=== PATIENT | male | born 1940 | race Caucasian/White ===

== ENCOUNTER 2020-03-12 14:48 | Outpatient (CLI) | payer MEDICARE, OTHER ==
[2020-03-12 20:17] LABS: BASOPHILS % (AUTO) 0.3 %; EOSINOPHILS # (AUTO) 0.1 10^3/uL (0.0-0.7); EOSINOPHILS % (AUTO) 2.4 %; LYMPHOCYTES # (AUTO) 1.3 10^3/uL (1.5-3.5); LYMPHOCYTES % (AUTO) 21.4 %; MEAN CORPUSCULAR HEMOGLOBIN 30.6 pg (27.0-31.0); MEAN CORPUSCULAR HGB CONC 32.5 g/dL (32.0-36.0); MEAN CORPUSCULAR VOLUME 94.1 fL (80.0-94.0); MEAN PLATELET VOLUME 11.4 fL (7.4-11.4); MONOCYTES # (AUTO) 0.7 10^3/uL (0.0-1.0); MONOCYTES % (AUTO) 12.4 %; NEUTROPHILS # (AUTO) 3.7 10^3/uL (1.5-6.6); NEUTROPHILS % (AUTO) 63.2 %; PLT - PLATELET COUNT 210 10^3/uL (130-450); RED BLOOD COUNT 4.58 10^6/uL (4.70-6.10); RED CELL DISTRIBUTION WIDTH 13.3 % (12.0-15.0); WHITE BLOOD COUNT 5.9 x10^3/uL (4.8-10.8)
[2020-03-12 20:32] LABS: ALBUMIN 4.3 g/dL (3.2-5.5); BILIRUBIN,DIRECT 0.1 mg/dL (0.1-0.5); BILIRUBIN,TOTAL 0.9 mg/dL (0.2-1.0); CREATININE 0.9 mg/dL (0.6-1.2); TOTAL PROTEIN 6.9 g/dL (6.7-8.2)
== END 2020-03-12 14:49 | disposition home or self-care (01) ==
LOC: LAB.S 14:48
PROVIDERS: ATTEND Podiatrist
DX: B35.1 Tinea unguium (principal)
CPT/HCPCS: 36415; 80076; 82565; 84520; 85025

== ENCOUNTER 2023-03-14 08:16 | Outpatient (CLI) | payer MEDICARE, OTHER | END 2023-03-14 23:59 | disposition EMS.NT | LOC: EMS 08:16 | DX: R53.1 Weakness (principal) ==

== ENCOUNTER 2023-03-16 15:06 | Outpatient (CLI) | payer MEDICARE, OTHER | END 2023-03-16 15:07 | disposition critical access hospital (66) | LOC: EMS 15:06 | DX: K92.1 Melena (principal); R19.7 Diarrhea, unspecified; R10.817 Generalized abdominal tenderness | CPT/HCPCS: A0425; A0429 ==

== ENCOUNTER 2023-03-28 15:17 | Outpatient (CLI) | payer MEDICARE, OTHER | END 2023-03-28 15:18 | disposition short-term general hospital (02) | LOC: EMS 15:17 | DX: S01.112A Laceration without foreign body of left eyelid and periocular area, initial encounter (principal); S51.012A Laceration without foreign body of left elbow, initial encounter; M25.522 Pain in left elbow; W01.190A Fall on same level from slipping, tripping and stumbling with subsequent striking against furniture, initial encounter; Y92.010 Kitchen of single-family (private) house as the place of occurrence of the external cause | CPT/HCPCS: A0425; A0429 ==

== ENCOUNTER 2023-04-28 09:03 | Outpatient (CLI) | payer MEDICARE, OTHER ==
--- NOTE | 2023-04-28 16:04 | CT Report ---
PROCEDURE: CT brain without contrast INDICATIONS: 81-year-old male with known subdural hematoma TECHNIQUE: Helical axial CT of the brain was obtained without contrast and reformatted in multiple p lanes. Radiation dose reduction was achieved using automated exposure control or adjustment of mA and /or kV according to patient size. COMPARISON: None available for comparison FINDINGS: CSF spaces: Ventricles are appropriate in size and position. No hydrocephalus. Basal cisterns unre markable. Brain: Left-sided subacute subdural hematoma measures 1.5 cm in thickness and contains both chronic and probably subacute components. 5 mm midline shift present. No evidence of parenchymal hemorrhage. Underlying atrophy and multifocal white matter chronic ischemic change. Bilateral intraocular lens re placements noted. Skull and face: Calvarium and skull base are unremarkable without suspicious lesion. Sinuses: Visualized sinuses and mastoids are clear. IMPRESSION: Known subacute to chronic subdural hematoma with mild midline shift. Comparison with any prior films would be helpful. Reviewed by: Miguelangel Michel MD on 04/28/2023 3:02 PM [place] Approved by: Miguelangel Michel MD on 04/28/2023 3:02 PM AK Station ID: [id number]
== END 2023-04-28 09:04 | disposition home or self-care (01) ==
LOC: DI 09:03
PROVIDERS: ATTEND Nurse Practitioner Family
DX: S06.5XAA Traumatic subdural hemorrhage with loss of consciousness status unknown, initial encounter (principal)

== ENCOUNTER 2023-05-01 12:43 | Outpatient (CLI) | payer MEDICARE, OTHER | END 2023-05-01 23:59 | disposition critical access hospital (66) | LOC: EMS 12:43 | DX: R03.1 Nonspecific low blood-pressure reading (principal); R29.6 Repeated falls | CPT/HCPCS: A0425; A0429 ==

== ENCOUNTER 2023-05-01 12:52 | Emergency (ER) | payer MEDICARE, OTHER ==
[2023-05-01] MEDS ORDERED: SODIUM CHLORIDE 0.9% 1,000 ML IV STA ×2 (12:59)
--- NOTE | 2023-05-01 13:08 | ED Physician Documentation ---
History of Present Illness - Stated complaint Stated Complaint: FALL - Chief complaint Chief Complaint: Trauma Hd/Nk - History obtained from History obtained from: Patient, EMS - History of Present Illness Timing: Today Pain level max: 0 Pain level now: 0 - Additonal information Additional information: Patient is an 82-year-old male with Parkinson's disease who was brought over for a fall from [facility] in [place]. It was unwitnessed he was in the bathroom. He is there reportedly for a traumatic subdural hemorrhage from mid March at [facility] in [place]. He is DNR with limited interventions. Patient is reportedly not on any anticoagulants but no medication list was sent with the patient. I would suspect that he is not on anticoagulants from his recent subdural hemorrhage. Patient has no complaints today. He reportedly had a small skin tear to the left elbow that was bandaged at the facility. Patient does not have any pain in his shoulders, neck, back, hips, knees or ankles. He was found to be mildly hypotensive with EMS. The patient states that his blood pressure goes up and down. He was started on normal saline with EMS and brought here for evaluation. Patient is DNR, limited interventions. Review of Systems Constitutional: denies: Fever, Chills GI: denies: Vomiting, Diarrhea Skin: denies: Rash Musculoskeletal: denies: Neck pain, Extremity pain Neurologic: denies: Headache PD PAST MEDICAL HISTORY - Past Medical History Cardiovascular: Hypertension, High cholesterol Respiratory: None Neuro: Parkinson's Endocrine/Autoimmune: None GI: GERD : Benign prostate hypertrophy HEENT: None Psych: None Musculoskeletal: Osteoarthritis Derm: None - Present Medications Home Medications: Ambulatory Orders Medication Instructions Recorded Confirmed Carbidopa/Levodopa ER 50/200 2 tab PO BID 03/16/23 03/16/23 [Sinemet Cr 50 mg/200 mg] Gabapentin [Neurontin] 300 mg PO TID 03/16/23 03/16/23 Losartan [Cozaar] 50 mg PO HS 03/16/23 03/16/23 Sertraline [Zoloft] 50 mg PO HS 03/16/23 03/16/23 hydroCHLOROthiazide [Hydrodiuril] 25 mg PO DAILY 03/16/23 03/16/23 - Allergies Allergies/Adverse Reactions: Allergies Allergy/AdvReac Type Severity Reaction Status Date / Time No Known Drug Allergies Allergy Verified 03/16/23 15:56 - Social History Does the pt smoke?: No Smoking Status: Never smoker Does the pt drink ETOH?: No Does the pt have substance abuse?: No - Immunizations Immunizations are current?: Yes - POLST Patient has POLST: No PD ED PE NORMAL - Vitals Vital signs reviewed: Yes - General General: Alert and oriented X 3, No acute distress, Well developed/nourished - HEENT HEENT: PERRL, EOMI, Moist mucous membranes, Pharynx benign, Other (Appears to be a healing hematoma to the left side of the head/forehead. There is a small abrasion present. No active bleeding.) - Neck Neck: Supple, no meningeal sign, No bony TTP - Cardiac Cardiac: RRR, Strong equal pulses - Respiratory Respiratory: No respiratory distress, Clear bilaterally - Abdomen Abdomen: Soft, Non tender, Non distended - Back Back: No CVA TTP, No spinal TTP - Derm Derm: Warm and dry - Extremities Extremities: No edema, No calf tenderness / cord, Other (Small abrasion/skin tear to the left elbow. No active bleeding.) - Neuro Neuro: Alert and oriented X 3, medical assistant per diem 2-12 intact, No motor deficit, No sensory deficit, Normal speech Eye Opening: Spontaneous Motor: Obeys Commands Verbal: Oriented GCS Score: 15 - Psych Psych: Normal mood, Normal affect Results - Vitals Vitals: Vital Signs - 24 hr 05/01/23 05/01/23 05/01/23 12:58 14:52 16:37 Temperature 36.4 C L 36.7 C Heart Rate 83 76 75 Respiratory 18 16 17 Rate Blood Pressure 94/51 L 110/67 164/87 H O2 Saturation 98 93 100 Oxygen O2 Source Room air - Labs Labs: Laboratory Tests 05/01/23 05/01/23 13:08 13:08 WBC 6.1 RBC 4.02 L Hgb 12.1 L Hct 36.3 L MCV 90.3 MCH 30.1 MCHC 33.3 RDW 13.0 Plt Count 219 MPV 9.9 Neut # (Auto) 4.4 Lymph # (Auto) 0.8 L Ballard # (Auto) 0.7 Eos # (Auto) 0.1 Baso # (Auto) 0.0 Absolute Nucleated RBC 0.00 Nucleated RBC % 0.0 Sodium 136 Potassium 3.6 Chloride 103 Carbon Dioxide 28 Anion Gap 5.0 L BUN 26 H Creatinine 0.7 Estimated GFR (MDRD) 108 Glucose 122 H Calcium 8.7 - Rads (name of study) Head CT Relevant Findings:: Final report received, See rad report PD Medical Decision Making - ED course Complexity details: reviewed results, re-evaluated patient, considered differential, d/w patient ED course: The patient's chronic subdural hemorrhage appears stable from prior. No apparent new injuries today. Patient is at his normal baseline. Patient is DNR, limited interventions. Does not want any further intervention at this time. Patient and family counseled regarding signs and symptoms for which I believe and urgent re-evaluation would be necessary. Patient with good understanding of and agreement to plan and is comfortable going home at this time This document was made in part using voice recognition software. While efforts are made to proofread this document, sound alike and grammatical errors may occur. Departure - Departure Disposition: 01 Home, Self Care Clinical Impression: Traumatic subdural hemorrhage Qualifiers: Encounter type: initial encounter Loss of consciousness presence/duration: without LOC Qualified Code(s): S06.5X0A - Traumatic subdural hemorrhage without loss of consciousness, initial encounter Hypotension Qualifiers: Hypotension type: unspecified hypotension type Qualified Code(s): I95.9 - Hypotension, unspecified Condition: Stable Instructions: ED Head Injury Closed Follow-Up: your,doctor in 1 week [Other] Comments: You need to follow-up closely with your doctor for further care. Please return if you worsen. Your head CT does show a persistent subdural hemorrhage, but no significant change. Make sure you are drinking plenty of fluids. Forms: PCP List Discharge Date/Time: 05/01/23 16:50
[2023-05-01 13:14] LABS: BASOPHILS % (AUTO) 0.5 %; EOSINOPHILS # (AUTO) 0.1 10^3/uL (0.0-0.7); EOSINOPHILS % (AUTO) 1.8 %; HCT - HEMATOCRIT 36.3 % (42.0-52.0); HGB - HEMOGLOBIN 12.1 g/dL (14.0-18.0); LYMPHOCYTES # (AUTO) 0.8 10^3/uL (1.5-3.5); LYMPHOCYTES % (AUTO) 12.7 %; MEAN CORPUSCULAR HEMOGLOBIN 30.1 pg (27.0-31.0); MEAN CORPUSCULAR HGB CONC 33.3 g/dL (32.0-36.0); MEAN CORPUSCULAR VOLUME 90.3 fL (80.0-94.0); MEAN PLATELET VOLUME 9.9 fL (7.4-11.4); MONOCYTES # (AUTO) 0.7 10^3/uL (0.0-1.0); NEUTROPHILS # (AUTO) 4.4 10^3/uL (1.5-6.6); NEUTROPHILS % (AUTO) 72.7 %; PLT - PLATELET COUNT 219 10^3/uL (130-450); RED BLOOD COUNT 4.02 10^6/uL (4.70-6.10); WHITE BLOOD COUNT 6.1 x10^3/uL (4.8-10.8)
[2023-05-01 13:33] LABS: CALCIUM 8.7 mg/dL (8.5-10.3); CREATININE 0.7 mg/dL (0.6-1.3); POTASSIUM 3.6 mmol/L (3.5-4.5)
--- NOTE | 2023-05-01 16:11 | CT Report ---
PROCEDURE: HEAD WO INDICATIONS: subacute/chronic subdural with new injury TECHNIQUE: Noncontrast 4.5 mm thick angled axial sections acquired from the foramen magnum to the vertex. For r adiation dose reduction, the following was used: automated exposure control, adjustment of mA and/or kV according to patient size. COMPARISON: CT April 28, 2023 FINDINGS: Image quality: Excellent. CSF spaces: Extra-axial crescentic fluid collection along the left calvarium with mixed densities me asuring up to 1 cm in thickness similar to comparison. Slight midline shift difficult to measure give n patient rotation however is limited comparison no hemorrhage identified. Basal cisterns are patent. Mild asymmetry of the lateral ventricles. Brain: No midline shift. No intracranial masses or hemorrhage. Claire-white matter interface is norm al. Skull and face: Calvarium and visualized facial bones are intact, without suspicious lesions. Soft tissue hematoma over the left temporal region. Sinuses: Visualized sinuses and mastoids are clear. IMPRESSION: Grossly unchanged appearance of acute on chronic subdural hematoma with slight midline shift. Reviewed by: Souleymane Bah MD on 05/01/2023 3:10 PM AKST Approved by: Souleymane Bah MD on 05/01/2023 3:10 PM AKST Station ID: [id number]
[2023-05-01 16:47] VITALS: BP 164/87; O2SAT 100
== END 2023-05-01 16:50 | disposition home or self-care (01) ==
LOC: EDUNIT# → ED 12:52
DX: S06.5X0A Traumatic subdural hemorrhage without loss of consciousness, initial encounter (principal); W19.XXXA Unspecified fall, initial encounter; Z91.81 History of falling; Y92.10 Unspecified residential institution as the place of occurrence of the external cause; I95.9 Hypotension, unspecified; Z66 Do not resuscitate; G20.A1 Parkinson's disease without dyskinesia, without mention of fluctuations; I10 Essential (primary) hypertension; E78.00 Pure hypercholesterolemia, unspecified; Z79.899 Other long term (current) drug therapy
CPT/HCPCS: 36415; 80048; 85025; 96360; 96361; 99283

== ENCOUNTER 2023-05-01 16:45 | Outpatient (CLI) | payer MEDICARE, OTHER | END 2023-05-01 23:59 | LOC: EMS 16:45 | PROVIDERS: ATTEND Emergency Medicine | DX: R41.0 Disorientation, unspecified (principal); G20.C Parkinsonism, unspecified; I62.00 Nontraumatic subdural hemorrhage, unspecified | CPT/HCPCS: A0425; A0428 ==

== ENCOUNTER 2023-07-31 05:15 | Outpatient (CLI) | payer MEDICARE, OTHER | END 2023-07-31 05:16 | disposition EMS.NT | LOC: EMS 05:15 | DX: Z03.89 Encounter for observation for other suspected diseases and conditions ruled out (principal) ==

== ENCOUNTER 2023-08-01 01:49 | Outpatient (CLI) | payer MEDICARE, OTHER | END 2023-08-01 23:59 | disposition EMS.NT | LOC: EMS 01:49 | DX: Z74.2 Need for assistance at home and no other household member able to render care (principal) ==

== ENCOUNTER 2023-09-01 10:42 | Outpatient (CLI) | payer MEDICARE, OTHER ==
--- NOTE | 2023-09-01 15:11 | CT Report ---
PROCEDURE: Head WO INDICATIONS: SUBDURAL HEMATOMA TECHNIQUE: Noncontrast 4.5 mm thick angled axial sections acquired from the foramen magnum to the vertex. For r adiation dose reduction, the following was used: automated exposure control, adjustment of mA and/or kV according to patient size. COMPARISON: 06/24/2023, 05/01/2023, 04/28/2023 FINDINGS: Image quality: Excellent. CSF spaces: Basal cisterns are patent. Ventricles are normal in size and shape. Brain: There is a small amount of chronic, resolving subdural hemorrhage seen on the left, now measu ring 4 mm in thickness, as on series 2 image 25 and on series 10 image 25. No new hemorrhage is seen. No midline shift. No intracranial masses. Claire-white matter interface is normal. Skull and face: Calvarium and visualized facial bones are intact, without suspicious lesions. Sinuses: Visualized sinuses and mastoids are clear. IMPRESSION: Continued improvement in the known left-sided subdural hemorrhage, now measuring 4 mm in thickness. No new hemorrhage is seen. Reviewed by: Josh Grimes MD on 09/01/2023 2:10 PM MANUELITO Approved by: Josh Grimes MD on 09/01/2023 2:10 PM AKMELVIN Station ID: [id number]
== END 2023-09-01 10:43 | disposition home or self-care (01) ==
LOC: DI 10:42
PROVIDERS: ATTEND Neurological Surgery
DX: S06.5XAD Traumatic subdural hemorrhage with loss of consciousness status unknown, subsequent encounter (principal)

== ENCOUNTER 2023-09-20 06:48 | Outpatient (CLI) | payer MEDICARE, OTHER | END 2023-09-20 23:55 | disposition left against medical advice (07) | LOC: EMS 06:48 | DX: Z03.89 Encounter for observation for other suspected diseases and conditions ruled out (principal); G20.A1 Parkinson's disease without dyskinesia, without mention of fluctuations; W06.XXXA Fall from bed, initial encounter; Y92.003 Bedroom of unspecified non-institutional (private) residence as the place of occurrence of the external cause ==

== ENCOUNTER 2023-09-30 01:39 | Outpatient (CLI) | payer MEDICARE, OTHER | END 2023-09-30 23:59 | disposition EMS.NT | LOC: EMS 01:39 | DX: Z03.89 Encounter for observation for other suspected diseases and conditions ruled out (principal) ==

== ENCOUNTER 2023-10-13 03:41 | Outpatient (CLI) | payer MEDICARE, OTHER | END 2023-10-13 03:42 | disposition EMS.NT | LOC: EMS 03:41 | DX: Z03.89 Encounter for observation for other suspected diseases and conditions ruled out (principal) ==

== ENCOUNTER 2023-10-20 16:13 | Outpatient (CLI) | payer MEDICARE, OTHER | END 2023-10-20 16:14 | disposition home or self-care (01) | LOC: LAB.N 16:13 | PROVIDERS: ATTEND Urology | DX: Z08 Encounter for follow-up examination after completed treatment for malignant neoplasm (principal); Z85.46 Personal history of malignant neoplasm of prostate | CPT/HCPCS: 36415; 84153 ==

== ENCOUNTER 2023-10-23 03:24 | Outpatient (CLI) | payer MEDICARE, OTHER | END 2023-10-23 23:59 | disposition EMS.NT | LOC: EMS 03:24 | DX: Z03.89 Encounter for observation for other suspected diseases and conditions ruled out (principal) ==

== ENCOUNTER 2023-11-03 02:09 | Outpatient (CLI) | payer MEDICARE, OTHER | END 2023-11-03 23:59 | disposition EMS.NT | LOC: EMS 02:09 | DX: Z03.89 Encounter for observation for other suspected diseases and conditions ruled out (principal) ==

== ENCOUNTER 2023-11-06 17:59 | Outpatient (CLI) | payer MEDICARE, OTHER | END 2023-11-06 23:59 | disposition EMS.NT | LOC: EMS 17:59 | DX: Z03.89 Encounter for observation for other suspected diseases and conditions ruled out (principal) ==

== ENCOUNTER 2023-11-08 23:10 | Outpatient (CLI) | payer MEDICARE, OTHER | END 2023-11-08 23:59 | disposition EMS.NT | LOC: EMS 23:10 | DX: Z03.89 Encounter for observation for other suspected diseases and conditions ruled out (principal) ==

== ENCOUNTER 2023-11-09 04:08 | Outpatient (CLI) | payer MEDICARE, OTHER | END 2023-11-09 04:09 | disposition EMS.NT | LOC: EMS 04:08 | DX: Z03.89 Encounter for observation for other suspected diseases and conditions ruled out (principal) ==

== ENCOUNTER 2023-11-09 23:39 | Outpatient (CLI) | payer MEDICARE, OTHER | END 2023-11-09 23:59 | disposition EMS.NT | LOC: EMS 23:39 | DX: Z03.89 Encounter for observation for other suspected diseases and conditions ruled out (principal) ==

== ENCOUNTER 2023-11-17 22:52 | Outpatient (CLI) | payer MEDICARE, OTHER | END 2023-11-17 22:53 | disposition EMS.NT | LOC: EMS 22:52 | DX: Z03.89 Encounter for observation for other suspected diseases and conditions ruled out (principal) ==

== ENCOUNTER 2023-11-24 15:56 | Outpatient (CLI) | payer MEDICARE, OTHER | END 2023-11-24 15:57 | disposition EMS.NT | LOC: EMS 15:56 | DX: Z03.89 Encounter for observation for other suspected diseases and conditions ruled out (principal) ==

== ENCOUNTER 2023-11-26 22:29 | Outpatient (CLI) | payer MEDICARE, OTHER | END 2023-11-26 23:59 | disposition EMS.NT | LOC: EMS 22:29 | DX: Z03.89 Encounter for observation for other suspected diseases and conditions ruled out (principal) ==

== ENCOUNTER 2023-12-10 08:32 | Outpatient (CLI) | payer MEDICARE, OTHER | END 2023-12-10 23:59 | disposition EMS.NT | LOC: EMS 08:32 | DX: Z03.89 Encounter for observation for other suspected diseases and conditions ruled out (principal) ==

== ENCOUNTER 2023-12-11 09:18 | Outpatient (CLI) | payer MEDICARE, OTHER | END 2023-12-11 23:59 | disposition critical access hospital (66) | LOC: EMS 09:18 | DX: R53.83 Other fatigue (principal) | CPT/HCPCS: A0425; A0429 ==

== ENCOUNTER 2023-12-11 09:40 | Emergency (ER) | payer MEDICARE, OTHER ==
--- NOTE | 2023-12-11 10:01 | ED Physician Documentation ---
History of Present Illness - Stated complaint Stated Complaint: GLF/AMS - Chief complaint Chief Complaint: General - History obtained from History obtained from: Patient, Family - Additonal information Additional information: 83-year-old gentleman presents by ambulance with his . He has a history of Parkinson's disease and his carbidopa levodopa was increased about 3 days ago. After that he became lethargic, but got better again. Yesterday he was on his way into the bathroom. He has to use a walker on the way into the bathroom, he is usually wheelchair-bound but the wheelchair does not fit into the bathroom. On transferring he fell and hit the back of his head against the door frame. There is no loss of consciousness but the feels like he is more lethargic again. He does have a history of conservatively managed subdural hemorrhage back in the fall 2022. PD PAST MEDICAL HISTORY - Past Medical History Cardiovascular: Hypertension, High cholesterol Respiratory: None Neuro: Parkinson's Endocrine/Autoimmune: None GI: GERD : Benign prostate hypertrophy HEENT: None Psych: None Musculoskeletal: Osteoarthritis Derm: None - Present Medications Home Medications: Ambulatory Orders Medication Instructions Recorded Confirmed Carbidopa/Levodopa ER 50/200 2 tab PO BID 03/16/23 03/16/23 [Sinemet Cr 50 mg/200 mg] Gabapentin [Neurontin] 300 mg PO TID 03/16/23 03/16/23 Losartan [Cozaar] 50 mg PO HS 03/16/23 03/16/23 Sertraline [Zoloft] 50 mg PO HS 03/16/23 03/16/23 hydroCHLOROthiazide [Hydrodiuril] 25 mg PO DAILY 03/16/23 03/16/23 - Allergies Allergies/Adverse Reactions: Allergies Allergy/AdvReac Type Severity Reaction Status Date / Time No Known Drug Allergies Allergy Verified 12/11/23 09:47 - Social History Does the pt smoke?: No Smoking Status: Never smoker Does the pt drink ETOH?: No Does the pt have substance abuse?: No - Immunizations Immunizations are current?: Yes - POLST Patient has POLST: No PD ED PE NORMAL - Vitals Vital signs reviewed: Yes - General General: Alert and oriented X 3, No acute distress, Other (Slight weakness somewhat slow to answer questions without obvious parkinsonian tremor on exam.) - HEENT HEENT: PERRL (Small bilateral pupils with sequela of prior cataract repair.), EOMI - Neck Neck: Supple, no meningeal sign, No bony TTP - Neuro Neuro: Alert and oriented X 3, control room technician 2-12 intact, No sensory deficit, Other (Mild weakness in the left leg which the thinks is probably chronic.) Eye Opening: Spontaneous Motor: Obeys Commands Verbal: Oriented GCS Score: 15 Results - Vitals Vitals: Vital Signs - 24 hr 12/11/23 09:47 Temperature 36.7 C Heart Rate 58 L Respiratory 16 Rate Blood Pressure 108/59 L O2 Saturation 99 Oxygen O2 Source Room air - Labs Labs: Laboratory Tests 12/11/23 12/11/23 12/11/23 10:06 10:06 10:06 WBC 6.1 RBC 3.99 L Hgb 11.9 L Hct 36.7 L MCV 92.0 MCH 29.8 MCHC 32.4 RDW 13.3 Plt Count 230 MPV 9.9 Neut # (Auto) 4.0 Lymph # (Auto) 0.9 L Bartholomew # (Auto) 0.8 Eos # (Auto) 0.3 Baso # (Auto) 0.0 Absolute Nucleated RBC 0.00 Nucleated RBC % 0.0 PT 12.5 INR 1.1 Sodium 136 Potassium 3.7 Chloride 101 Carbon Dioxide 30 Anion Gap 5.0 L BUN 27 H Creatinine 1.0 Estimated GFR (MDRD) 71 L Glucose 118 H Calcium 9.2 Total Bilirubin 0.6 AST 15 ALT < 3 L Alkaline Phosphatase 74 Total Protein 6.5 Albumin 4.0 Globulin 2.5 Albumin/Globulin Ratio 1.6 Urine Color Urine Clarity Urine pH Ur Specific [place]camp[place] Urine Protein Urine Glucose (UA) Urine Ketones Urine Occult Blood Urine Nitrite Urine Bilirubin Urine Urobilinogen Ur Leukocyte Esterase Ur Microscopic Review Urine Culture Comments 12/11/23 10:29 WBC RBC Hgb Hct MCV MCH MCHC RDW Plt Count MPV Neut # (Auto) Lymph # (Auto) Bartholomew # (Auto) Eos # (Auto) Baso # (Auto) Absolute Nucleated RBC Nucleated RBC % PT INR Sodium Potassium Chloride Carbon Dioxide Anion Gap BUN Creatinine Estimated GFR (MDRD) Glucose Calcium Total Bilirubin AST ALT Alkaline Phosphatase Total Protein Albumin Globulin Albumin/Globulin Ratio Urine Color YELLOW Urine Clarity CLEAR Urine pH 6.0 Ur Specific [place] 1.025 Urine Protein NEGATIVE Urine Glucose (UA) NEGATIVE Urine Ketones TRACE Urine Occult Blood NEGATIVE Urine Nitrite NEGATIVE Urine Bilirubin NEGATIVE Urine Urobilinogen 0.2 (NORMAL) Ur Leukocyte Esterase NEGATIVE Ur Microscopic Review NOT INDICATED Urine Culture Comments NOT INDICATED - Rads (name of study) CT of the head showing interval resolution of previous subdural hematoma without acute trauma. Relevant Findings:: Final report received, EMP independent interpretation of test CT of the cervical spine showing DDD without acute trauma. Relevant Findings:: Final report received, EMP independent interpretation of test PD Medical Decision Making - ED course Complexity details: reviewed results (CBC showing mild normocytic anemia, relatively stable from prior values. INR normal. CBC CMP unremarkable as is urinalysis.) ED course: He presents with some lethargy in the setting of recent head injury and recent changes in his carbidopa levodopa. Relevant imaging of the head and cervical spine were negative for acute trauma. Labs not showing any reason for lethargy so presume this is related to his carbidopa levodopa. Neurology follow-up was advised. Departure - Departure Disposition: 01 Home, Self Care Clinical Impression: Head injury Qualifiers: Encounter type: initial encounter Qualified Code(s): S09.90XA - Unspecified injury of head, initial encounter Condition: Good Record reviewed to determine appropriate education?: Yes Instructions: ED Head Injury Closed Comments: The CAT scans of the head and neck and labs did not show any reason for any lethargy or altered mental status so presume this is from the increase in the carbidopa levodopa as opposed to the injury. Recommend calling your neurologist tomorrow to discuss. Return for new or worsening symptoms. Forms: PCP List
[2023-12-11 10:10] LABS: BASOPHILS % (AUTO) 0.7 %; EOSINOPHILS # (AUTO) 0.3 10^3/uL (0.0-0.7); EOSINOPHILS % (AUTO) 5.1 %; HCT - HEMATOCRIT 36.7 % (42.0-52.0); HGB - HEMOGLOBIN 11.9 g/dL (14.0-18.0); LYMPHOCYTES # (AUTO) 0.9 10^3/uL (1.5-3.5); MEAN CORPUSCULAR HEMOGLOBIN 29.8 pg (27.0-31.0); MEAN CORPUSCULAR HGB CONC 32.4 g/dL (32.0-36.0); MEAN PLATELET VOLUME 9.9 fL (7.4-11.4); MONOCYTES # (AUTO) 0.8 10^3/uL (0.0-1.0); MONOCYTES % (AUTO) 13.4 %; NEUTROPHILS % (AUTO) 66.5 %; PLT - PLATELET COUNT 230 10^3/uL (130-450); RED BLOOD COUNT 3.99 10^6/uL (4.70-6.10); RED CELL DISTRIBUTION WIDTH 13.3 % (12.0-15.0); WHITE BLOOD COUNT 6.1 x10^3/uL (4.8-10.8)
[2023-12-11 10:15] LABS: INR 1.1 (0.8-1.2); PT - PROTHROMBIN TIME 12.5 secs (9.9-12.6)
[2023-12-11 10:28] LABS: ALBUMIN/GLOBULIN RATIO 1.6 (1.0-2.2); ALKALINE PHOSPHATASE 74 IU/L (42-121); ALT ALANINE AMINOTRANSFERASE < 3 IU/L (10-60); AST ASPARTATE AMINOTRANSFERASE 15 IU/L (10-42); BILIRUBIN,TOTAL 0.6 mg/dL (0.2-1.0); BUN - BLOOD UREA NITROGEN 27 mg/dL (6-20); CALCIUM 9.2 mg/dL (8.5-10.3); CARBON DIOXIDE - CO2 30 mmol/L (21-32); CHLORIDE 101 mmol/L (101-111); GFR - MDRD 71 (>89); GLUCOSE 118 mg/dL (74-104); POTASSIUM 3.7 mmol/L (3.5-4.5); SODIUM 136 mmol/L (135-145); TOTAL PROTEIN 6.5 g/dL (6.4-8.9)
[2023-12-11 10:34] LABS: BILIRUBIN,URINE NEGATIVE (NEGATIVE); GLUCOSE, URINE (UA) NEGATIVE (NEGATIVE); KETONES,URINE (UA) TRACE mg/dL (NEGATIVE); LEUKOCYTE ESTERASE, URINE NEGATIVE (NEGATIVE); NITRITE,URINE NEGATIVE (NEGATIVE); OCCULT BLOOD,URINE NEGATIVE (NEGATIVE); PROTEIN,URINE NEGATIVE (NEGATIVE); UROBILINOGEN,URINE 0.2 (NORMAL) E.U./dL (NORMAL)
[2023-12-11 10:36] LABS: CLARITY,URINE CLEAR (CLEAR)
--- NOTE | 2023-12-11 11:21 | CT Report ---
PROCEDURE: Head WO INDICATIONS: head inj TECHNIQUE: Noncontrast 4.5 mm thick angled axial sections acquired from the foramen magnum to the vertex. For r adiation dose reduction, the following was used: automated exposure control, adjustment of mA and/or kV according to patient size. COMPARISON: 09/01/2023, 06/24/2023, 05/01/2023 FINDINGS: Image quality: Excellent. CSF spaces: Basal cisterns are patent. No extra-axial fluid collections. The ventricles are symmet erendira in size and shape. Brain: No intracranial bleeds or masses. There is cerebral volume loss for age, with resultant vent ricular and sulcal prominence. There are periventricular and deep white matter chronic small vessel ischemic changes. There is intracranial internal carotid artery atherosclerosis. Skull and face: Calvarium and visualized facial bones appear intact, without suspicious lesions. Sinuses: Visualized sinuses and mastoids are clear. IMPRESSION: Interval resolution of previously noted left subdural hematoma. No CT evidence of acute intracranial pathology. Reviewed by: Luis Enrique Betancur MD on 12/11/2023 11:19 AM PDT Approved by: Luis Enrique Betancur MD on 12/11/2023 11:19 AM PDT Station ID: [id number]
--- NOTE | 2023-12-11 11:22 | CT Report ---
PROCEDURE: Cervical Spine WO INDICATIONS: head inj TECHNIQUE: Noncontrast 3 mm thick sections acquired from the skull base to the T4 level. Sagittal and coronal r eformats were then constructed. For radiation dose reduction, the following was used: automated exp osure control, adjustment of mA and/or kV according to patient size. COMPARISON: None. FINDINGS: Image quality: Excellent. Bones: No fractures or dislocations. Straightening and reversal of normal cervical lordosis is seen. Loss of disc height, degenerative endplate changes and bilateral uncovertebral hypertrophic changes are noted throughout cervical spine causing [id number] central canal stenosis and bilateral bon y foraminal narrowing more notably at C5-6 and C6-7 levels. Visualized superior ribs are intact. Soft tissues: Prevertebral soft tissues are normal in thickness. No paravertebral hematomas. No ap ical pneumothoraces. IMPRESSION: 1. No acute cervical spine fracture or dislocation. 2. Degenerative disc disease throughout cervical spine as above. Reviewed by: Luis Enrique Betancur MD on 12/11/2023 11:20 AM PDT Approved by: Luis Enrique Betancur MD on 12/11/2023 11:20 AM PDT Station ID: [id number]
[2023-12-11 12:13] VITALS: BP 129/79; O2SAT 100
== END 2023-12-11 12:02 | disposition home or self-care (01) ==
LOC: ED 09:40
DX: S09.90XA Unspecified injury of head, initial encounter (principal); W18.30XA Fall on same level, unspecified, initial encounter; Y92.9 Unspecified place or not applicable; I10 Essential (primary) hypertension; E78.00 Pure hypercholesterolemia, unspecified; G20.A1 Parkinson's disease without dyskinesia, without mention of fluctuations; Z79.899 Other long term (current) drug therapy
CPT/HCPCS: 36415; 80053; 81001; 81003; 85025; 85610; 87086; 99283; 99284

== ENCOUNTER 2023-12-16 22:20 | Outpatient (CLI) | payer MEDICARE, OTHER | END 2023-12-16 23:59 | disposition EMS.NT | LOC: EMS 22:20 | DX: Z03.89 Encounter for observation for other suspected diseases and conditions ruled out (principal) ==

== ENCOUNTER 2023-12-22 20:48 | Outpatient (CLI) | payer MEDICARE, OTHER | END 2023-12-22 20:49 | disposition EMS.NT | LOC: EMS 20:48 | DX: Z03.89 Encounter for observation for other suspected diseases and conditions ruled out (principal) ==

== ENCOUNTER 2023-12-30 22:03 | Outpatient (CLI) | payer MEDICARE, OTHER | END 2023-12-30 23:59 | disposition EMS.NT | LOC: EMS 22:03 | DX: Z03.89 Encounter for observation for other suspected diseases and conditions ruled out (principal) ==

== ENCOUNTER 2024-01-07 15:45 | Outpatient (CLI) | payer MEDICARE, OTHER | END 2024-01-07 23:59 | disposition left against medical advice (07) | LOC: EMS 15:45 | DX: S51.011A Laceration without foreign body of right elbow, initial encounter (principal); W06.XXXA Fall from bed, initial encounter; Y92.092 Bedroom in other non-institutional residence as the place of occurrence of the external cause ==

== ENCOUNTER 2024-01-12 12:39 | Outpatient (CLI) | payer MEDICARE, OTHER | END 2024-01-12 23:59 | disposition critical access hospital (66) | LOC: EMS 12:39 | DX: S00.83XA Contusion of other part of head, initial encounter (principal); R46.4 Slowness and poor responsiveness; W18.30XA Fall on same level, unspecified, initial encounter; Y92.099 Unspecified place in other non-institutional residence as the place of occurrence of the external cause; R29.6 Repeated falls; G20.A1 Parkinson's disease without dyskinesia, without mention of fluctuations | CPT/HCPCS: A0425; A0429 ==

== ENCOUNTER 2024-01-12 12:59 | Emergency (ER) | payer MEDICARE, OTHER ==
--- NOTE | 2024-01-12 13:11 | ED Physician Documentation ---
History of Present Illness - Stated complaint Stated Complaint: MULTIPLE FALLS - Chief complaint Chief Complaint: General - History obtained from History obtained from: Patient, Family - Additonal information Additional information: 83-year-old gentleman with Parkinson's and dementia. He has a history of relatively recent conservatively managed subdural hemorrhage and has a history of neuropathy for which she was started on gabapentin at a dose of 200 mg p.o. twice daily yesterday. Since then his says he is much more lethargic and had a fall out of bed last night and he hit his head. There is no clear loss of consciousness. PD PAST MEDICAL HISTORY - Past Medical History Cardiovascular: Hypertension, High cholesterol Respiratory: None Neuro: Parkinson's Endocrine/Autoimmune: None GI: GERD : Benign prostate hypertrophy HEENT: None Psych: None Musculoskeletal: Osteoarthritis Derm: None - Present Medications Home Medications: Ambulatory Orders Medication Instructions Recorded Confirmed Carbidopa/Levodopa ER 50/200 1 tab PO Q4HR 03/16/23 01/12/24 [Sinemet Cr 50 mg/200 mg] Gabapentin [Neurontin] 200 mg PO BID 03/16/23 01/12/24 Losartan [Cozaar] 50 mg PO HS 03/16/23 01/12/24 Sertraline [Zoloft] 50 mg PO HS 03/16/23 01/12/24 hydroCHLOROthiazide [Hydrodiuril] 25 mg PO DAILY 03/16/23 01/12/24 Tamsulosin [Flomax] 0.4 mg PO HS 01/12/24 01/12/24 - Allergies Allergies/Adverse Reactions: Allergies Allergy/AdvReac Type Severity Reaction Status Date / Time No Known Drug Allergies Allergy Verified 01/12/24 13:08 - Social History Does the pt smoke?: No Smoking Status: Never smoker Does the pt drink ETOH?: No Does the pt have substance abuse?: No - Immunizations Immunizations are current?: Yes - POLST Patient has POLST: No PD ED PE NORMAL - Vitals Vital signs reviewed: Yes - General General: Other (He is somewhat somnolent but easily arousable with parkinsonian tremor. He is alert and oriented x 2-3. Large bruise left superior scalp anteriorly.) - HEENT HEENT: PERRL, EOMI - Neck Neck: Supple, no meningeal sign, No bony TTP - Cardiac Cardiac: RRR, No murmur - Respiratory Respiratory: No respiratory distress, Clear bilaterally - Abdomen Abdomen: Non tender - Back Back: No CVA TTP, No spinal TTP - Derm Derm: Normal color, Warm and dry - Extremities Extremities: Other (Multiple skin tears on both upper extremities. Healing more chronic wound on left lateral lower extremity. There is swelling of the left lower extremity which the says is chronic.) - Neuro Neuro: beer runner 2-12 intact Eye Opening: Spontaneous Motor: Obeys Commands Verbal: Oriented GCS Score: 15 - Psych Psych: Normal mood, Normal affect Results - Vitals Vitals: Vital Signs - 24 hr 01/12/24 13:00 Temperature 36.2 C L Heart Rate 64 Respiratory 18 Rate Blood Pressure 137/68 H O2 Saturation 100 Oxygen O2 Source Room air - Labs Labs: Laboratory Tests 01/12/24 01/12/24 01/12/24 13:28 13:28 13:28 WBC 9.2 RBC 3.95 L Hgb 11.9 L Hct 36.8 L MCV 93.2 MCH 30.1 MCHC 32.3 RDW 13.7 Plt Count 239 MPV 10.0 Neut # (Auto) 7.4 H Lymph # (Auto) 0.8 L Refugio # (Auto) 0.9 Eos # (Auto) 0.1 Baso # (Auto) 0.0 Absolute Nucleated RBC 0.00 Nucleated RBC % 0.0 PT 13.1 H INR 1.2 Sodium 139 Potassium 3.7 Chloride 104 Carbon Dioxide 30 Anion Gap 5.0 L BUN 45 H Creatinine 0.7 Estimated GFR (MDRD) 107 Glucose 118 H Calcium 8.8 Total Bilirubin 0.7 AST 45 H ALT 3 L Alkaline Phosphatase 68 Total Protein 6.3 L Albumin 3.6 Globulin 2.7 Albumin/Globulin Ratio 1.3 - Rads (name of study) CT of the head and cervical spine were negative for acute findings. Relevant Findings:: Final report received, EMP independent interpretation of test PD Medical Decision Making - ED course ED course: Lab work is notable for CBC with mild anemia, chronic. INR normal. CMP generally unremarkable. He is somnolent and falling a lot, that may be from the recent reinitiation of gabapentin and the timing is suggestive of that. There is no evidence of traumatic injury or infection. Departure - Departure Disposition: 01 Home, Self Care Clinical Impression: Confusion Head injury Qualifiers: Encounter type: initial encounter Qualified Code(s): S09.90XA - Unspecified injury of head, initial encounter Fall Qualifiers: Encounter type: initial encounter Qualified Code(s): W19.XXXA - Unspecified fall, initial encounter Condition: Stable Record reviewed to determine appropriate education?: Yes Instructions: ED Head Injury Closed Comments: Ochoa was seen today for confusion and head injury in the setting of recent falls. He has become more confused after the initiation of his gabapentin and would recommend that be held. Call your doctor to arrange a follow-up appointment, make the next available appointment. In the interim, return anytime if worse or if new symptoms develop. Forms: PCP List
[2024-01-12 13:16] VITALS: O2SAT 100
[2024-01-12 13:33] LABS: BASOPHILS % (AUTO) 0.2 %; EOSINOPHILS # (AUTO) 0.1 10^3/uL (0.0-0.7); EOSINOPHILS % (AUTO) 0.7 %; HCT - HEMATOCRIT 36.8 % (42.0-52.0); HGB - HEMOGLOBIN 11.9 g/dL (14.0-18.0); LYMPHOCYTES # (AUTO) 0.8 10^3/uL (1.5-3.5); LYMPHOCYTES % (AUTO) 8.1 %; MEAN CORPUSCULAR HEMOGLOBIN 30.1 pg (27.0-31.0); MEAN CORPUSCULAR HGB CONC 32.3 g/dL (32.0-36.0); MEAN CORPUSCULAR VOLUME 93.2 fL (80.0-94.0); MONOCYTES # (AUTO) 0.9 10^3/uL (0.0-1.0); MONOCYTES % (AUTO) 10.2 %; NEUTROPHILS # (AUTO) 7.4 10^3/uL (1.5-6.6); NEUTROPHILS % (AUTO) 80.5 %; PLT - PLATELET COUNT 239 10^3/uL (130-450); RED BLOOD COUNT 3.95 10^6/uL (4.70-6.10); RED CELL DISTRIBUTION WIDTH 13.7 % (12.0-15.0); WHITE BLOOD COUNT 9.2 x10^3/uL (4.8-10.8)
[2024-01-12 13:37] LABS: INR 1.2 (0.8-1.2); PT - PROTHROMBIN TIME 13.1 secs (9.9-12.6)
[2024-01-12 13:44] LABS: ALBUMIN 3.6 g/dL (3.2-5.5); ALBUMIN/GLOBULIN RATIO 1.3 (1.0-2.2); BILIRUBIN,TOTAL 0.7 mg/dL (0.2-1.0); CALCIUM 8.8 mg/dL (8.5-10.3); CREATININE 0.7 mg/dL (0.6-1.3); POTASSIUM 3.7 mmol/L (3.5-4.5); TOTAL PROTEIN 6.3 g/dL (6.4-8.9)
--- NOTE | 2024-01-12 14:59 | CT Report ---
PROCEDURE: Head WO INDICATIONS: head inj TECHNIQUE: Noncontrast 4.5 mm thick angled axial sections acquired from the foramen magnum to the vertex. For r adiation dose reduction, the following was used: automated exposure control, adjustment of mA and/or kV according to patient size. COMPARISON: CT head dated 11/11/2023. FINDINGS: Image quality: Excellent. CSF spaces: Basal cisterns are patent. No extra-axial fluid collections. Ventricles are normal in size and shape. Brain: No midline shift. No intracranial masses or hemorrhage. Claire-white matter interface is norm al. Intracranial carotid calcifications. Age-related volume loss and small vessel ischemic change. Skull and face: Calvarium and visualized facial bones are intact, without suspicious lesions. Sinuses: Visualized sinuses and mastoids are clear. IMPRESSION: No acute intracranial pathology. Reviewed by: Praveen Corona MD on 01/12/2024 2:57 PM PDT Approved by: Praveen Corona MD on 01/12/2024 2:57 PM PDT Station ID: [id number]
--- NOTE | 2024-01-12 15:03 | CT Report ---
PROCEDURE: Cervical Spine WO INDICATIONS: head inj TECHNIQUE: Noncontrast 3 mm thick sections acquired from the skull base to the T4 level. Sagittal and coronal r eformats were then constructed. For radiation dose reduction, the following was used: automated exp osure control, adjustment of mA and/or kV according to patient size. COMPARISON: 11/08/2023. FINDINGS: Image quality: Excellent. Bones: No fractures or dislocations. Visualized superior ribs are intact. Severe cervical spondylo sis. Multilevel disc height loss and uncovertebral joint osteophytes with multilevel bony foraminal n arrowing. Multilevel facet arthropathy. Trace degenerative anterolisthesis of C3 on C4 and C6 on C7. Canal stenosis at C4-C5 and C5-C6. Soft tissues: Prevertebral soft tissues are normal in thickness. No paravertebral hematomas. No ap ical pneumothoraces. IMPRESSION: 1. No acute cervical fracture or dislocation. 2. Cervical spondylosis, severe. Reviewed by: Praveen Corona MD on 01/12/2024 3:01 PM PDT Approved by: Praveen Corona MD on 01/12/2024 3:01 PM PDT Station ID: [id number]
[2024-01-12 17:53] VITALS: BP 136/80
== END 2024-01-12 17:00 | disposition home or self-care (01) ==
LOC: ED 12:59
DX: S09.90XA Unspecified injury of head, initial encounter (principal); W06.XXXA Fall from bed, initial encounter; R41.0 Disorientation, unspecified; F03.90 Unspecified dementia, unspecified severity, without behavioral disturbance, psychotic disturbance, mood disturbance, and anxiety; Z79.899 Other long term (current) drug therapy
CPT/HCPCS: 36415; 80053; 85025; 85610; 99284

== ENCOUNTER 2024-01-12 17:09 | Outpatient (CLI) | payer MEDICARE, OTHER | END 2024-01-12 17:10 | disposition home or self-care (01) | LOC: EMS 17:09 | PROVIDERS: ATTEND Emergency Medicine | DX: R41.82 Altered mental status, unspecified (principal); G20.A1 Parkinson's disease without dyskinesia, without mention of fluctuations; Z99.3 Dependence on wheelchair; S00.83XA Contusion of other part of head, initial encounter; W19.XXXA Unspecified fall, initial encounter | CPT/HCPCS: A0425; A0428 ==

== ENCOUNTER 2024-02-03 10:57 | Outpatient (CLI) | payer MEDICARE, OTHER | END 2024-02-03 23:59 | disposition critical access hospital (66) | LOC: EMS 10:57 | DX: S80.822A Blister (nonthermal), left lower leg, initial encounter (principal); M79.605 Pain in left leg; M79.89 Other specified soft tissue disorders | CPT/HCPCS: A0425; A0429 ==

== ENCOUNTER 2024-02-03 11:16 | Emergency (ER) | payer MEDICARE, OTHER ==
--- NOTE | 2024-02-03 11:42 | ED Physician Documentation ---
History of Present Illness - Stated complaint Stated Complaint: L LEG SWOLLEN/BLISTERS - Chief complaint Chief Complaint: Ext Problem - Additonal information Additional information: Patient is an 83-year-old male presenting to the emergency department after left leg swelling and blistering noted by his . Patient is unremarkable past medical history for Parkinson's currently living at assisted living. notes he mainly is in a wheelchair. Patient denies any chest pain or shortness of breath. No fevers or chills. PD PAST MEDICAL HISTORY - Past Medical History Cardiovascular: Hypertension, High cholesterol Respiratory: None Neuro: Parkinson's Endocrine/Autoimmune: None GI: GERD : Benign prostate hypertrophy HEENT: None Psych: None Musculoskeletal: Osteoarthritis Derm: None - Present Medications Home Medications: Ambulatory Orders Medication Instructions Recorded Confirmed Carbidopa/Levodopa ER 50/200 1 tab PO Q4HR 03/16/23 01/12/24 [Sinemet Cr 50 mg/200 mg] Gabapentin [Neurontin] 200 mg PO BID 03/16/23 01/12/24 Losartan [Cozaar] 50 mg PO HS 03/16/23 01/12/24 Sertraline [Zoloft] 50 mg PO HS 03/16/23 01/12/24 hydroCHLOROthiazide [Hydrodiuril] 25 mg PO DAILY 03/16/23 01/12/24 Tamsulosin [Flomax] 0.4 mg PO HS 01/12/24 01/12/24 Apixaban [Eliquis] 5 mg PO BID #45 tab 02/03/24 Bacitracin Zinc Oint 1 applic TOP BID #1 each 02/03/24 cephALEXin [Keflex] 500 mg PO Q6H #28 cap 02/03/24 - Allergies Allergies/Adverse Reactions: Allergies Allergy/AdvReac Type Severity Reaction Status Date / Time No Known Drug Allergies Allergy Verified 02/03/24 11:22 - Social History Does the pt smoke?: No Smoking Status: Never smoker Does the pt drink ETOH?: No Does the pt have substance abuse?: No - Immunizations Immunizations are current?: Yes - POLST Patient has POLST: No PD ED PE NORMAL - Vitals Vital signs reviewed: Yes - General General: Other (Patient does have history of Parkinson's he is at baseline menta l status confirmed by patient's who is present with him.) - HEENT HEENT: Atraumatic - Neck Neck: Supple, no meningeal sign - Cardiac Cardiac: RRR, No murmur, No gallop, No rub - Respiratory Respiratory: No respiratory distress, Clear bilaterally - Abdomen Abdomen: Normal bowel sounds - Derm Derm: Other (Mild erythema and warmth to touch of left leg full range of motion of joints intact in knee and ankle with no significant swelling over joints or tenderness on palpation. 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 Eye Opening: Spontaneous Motor: Obeys Commands Verbal: Oriented (oriented to baseline status) GCS Score: 15 Results - Vitals Vitals: Oxygen O2 Source Room air - Labs Labs: Microbiology 02/03/24 12:40 Anaerobic Culture - Final Leg - Left Anaerobic Culture Result 1 - Final Aerobic Culture - Final Aerobic Culture Result 1 - Final Aerobic Culture Result 2 - Final Aerobic Culture Result 3 - Final Aerobic Bacterial Sensitivity - Final Laboratory Tests 02/03/24 02/03/24 02/03/24 12:40 12:40 12:40 WBC 10.7 RBC 4.11 L Hgb 12.3 L Hct 38.0 L MCV 92.5 MCH 29.9 MCHC 32.4 RDW 14.0 Plt Count 255 MPV 9.5 Neut # (Auto) 8.6 H Lymph # (Auto) 0.6 L Hughes # (Auto) 1.4 H Eos # (Auto) 0.0 Baso # (Auto) 0.0 Absolute Nucleated RBC 0.00 Nucleated RBC % 0.0 PT 12.3 INR 1.1 Sodium 136 Potassium 3.8 Chloride 101 Carbon Dioxide 30 Anion Gap 5.0 L BUN 37 H Creatinine 0.8 Estimated GFR (MDRD) 92 Glucose 121 H Calcium 8.8 Total Bilirubin 0.5 AST 120 H ALT 9 L Alkaline Phosphatase 87 Total Protein 5.9 L Albumin 3.6 Globulin 2.3 Albumin/Globulin Ratio 1.6 PD Medical Decision Making - ED course ED course: Patient 83-year-old male brought in by patient's after she noted left leg blistering and swelling. She notes he has some chronic leg swelling and is mainly in a wheelchair but can ambulate at home. He denies any chest pain or shortness of breath. Left leg swelling and blistering noted on examination with pretibial pitting and warm to touch. No significant tenderness on exam full range of motion of left leg intact no significant joint tenderness on palpation. Patient is not on any blood thinners as he had a subdural hematoma last fall that has now resolved after he was monitored by neurosurgery in the outpatient setting. Ultrasound here in ED shows. Clot is present in the posterior tibial veins extending through the popliteal vein. No clot above the popliteal vein and the deep venous system. Labs are stable no significant leukocytosis no signs of anemia no significantly elevated INR. Patient continues to deny any chest pain or shortness of breath here. Will hold off on CT PE as he is asymptomatic for any signs of pulmonary embolism. He is saturating well nontachycardic in the emergency department as well. Ultrasound shows distal clot to left leg x-ray shows no signs of fracture there is degenerative disease and arthritis but no signs of knee effusion. Discussed with and patient at length that patient has high risk of starting on blood thinners and if he has a history of bleeding and a history of hypertension and history of falls he has a high risk of rebleeding. However remaining in his wheelchair at his facility could extend DVT and cause a PE which ultimately could lead to . Discussed at length with and patient and they are agreeable to starting on blood thinner. Patient will also be started on oral and topical antibiotics given blistering and redness with chronic wounds to left leg. Patient's leg was rewrapped here in the emergency department. There was a aerobic/anaerobic swab obtained of left leg to culture we will call patient on results. They were given strict return precautions. Departure - Departure Disposition: 01 Home, Self Care Clinical Impression: Left leg DVT, Left leg cellulitis Condition: Good Instructions: Cellulitis Dc, ED DVT Prescriptions: Bacitracin Zinc Oint 1 applic TOP BID #1 each Apixaban [Eliquis] 5 mg PO BID #45 tab cephALEXin [Keflex] 500 mg PO Q6H #28 cap Comments: You were seen here in the emergency department for your left leg swelling your ultrasound did show a clot in your left leg I discussed at length with your and you on risk versus benefit of starting an anticoagulant. There is concerned that it could travel to your chest if untreated and if treated you have a high risk of rebleeding with your history of head bleed recently and with your history of hypertension you have a higher risk for stroke. Despite discussing risks we have agreed to continue with treatment return if you develop any headaches vision changes any recurrent falls worsening leg swelling chest pain or shortness of breath. I have sent antibiotics to help with wounds to your legs and topical antibiotic ointment as well. Continue to follow with wound care and return with any fevers chills or any other new or worsening symptoms. I have given you a course of Eliquis however it will be up to your PCP for how long this needs to be continued please follow-up with them in 1 week for reevaluation. Forms: PCP List Discharge Date/Time: 02/03/24 16:13
[2024-02-03 12:49] LABS: BASOPHILS % (AUTO) 0.2 %; EOSINOPHILS % (AUTO) 0.2 %; HGB - HEMOGLOBIN 12.3 g/dL (14.0-18.0); LYMPHOCYTES # (AUTO) 0.6 10^3/uL (1.5-3.5); LYMPHOCYTES % (AUTO) 5.9 %; MEAN CORPUSCULAR HEMOGLOBIN 29.9 pg (27.0-31.0); MEAN CORPUSCULAR HGB CONC 32.4 g/dL (32.0-36.0); MEAN CORPUSCULAR VOLUME 92.5 fL (80.0-94.0); MEAN PLATELET VOLUME 9.5 fL (7.4-11.4); MONOCYTES # (AUTO) 1.4 10^3/uL (0.0-1.0); MONOCYTES % (AUTO) 13.2 %; NEUTROPHILS # (AUTO) 8.6 10^3/uL (1.5-6.6); NEUTROPHILS % (AUTO) 80.2 %; PLT - PLATELET COUNT 255 10^3/uL (130-450); RED BLOOD COUNT 4.11 10^6/uL (4.70-6.10); WHITE BLOOD COUNT 10.7 x10^3/uL (4.8-10.8)
[2024-02-03 12:55] LABS: INR 1.1 (0.8-1.2); PT - PROTHROMBIN TIME 12.3 secs (9.9-12.6)
[2024-02-03 13:17] LABS: ALBUMIN 3.6 g/dL (3.2-5.5); ALBUMIN/GLOBULIN RATIO 1.6 (1.0-2.2); BILIRUBIN,TOTAL 0.5 mg/dL (0.2-1.0); CALCIUM 8.8 mg/dL (8.5-10.3); CREATININE 0.8 mg/dL (0.6-1.3); POTASSIUM 3.8 mmol/L (3.5-4.5); TOTAL PROTEIN 5.9 g/dL (6.4-8.9)
--- NOTE | 2024-02-03 13:31 | Ultrasound Report ---
PROCEDURE: Duplex Ext Veins Left INDICATIONS: left leg swelling TECHNIQUE: Real-time imaging, as well as color and pulse Doppler interrogation, were performed of the lower extr emity deep veins from the inguinal ligament to the popliteal fossa. Attempted visualization of the ca lf veins was performed. COMPARISON: None. FINDINGS: Clot is present in the posterior tibial veins extending through the popliteal vein. No clot above the popliteal vein and the deep venous system. IMPRESSION: DVT in the calf and behind the knee. Reviewed by: Praveen Corona MD on 02/03/2024 1:30 PM PDT Approved by: Praveen Cornoa MD on 02/03/2024 1:30 PM PDT Station ID: [id number]
--- NOTE | 2024-02-03 13:59 | XRAY Report ---
PROCEDURE: Knee 4+V LT INDICATIONS: leg swelling and knee pain TECHNIQUE: 4 views of the knee(s) were acquired. COMPARISON: None. FINDINGS: Bones: No fractures or dislocations. No suspicious bony lesions. Tricompartment degenerative arthri tis with severe medial compartment joint space loss. Soft tissues: No knee joint effusion. No suspicious soft tissue calcifications or masses. IMPRESSION: No acute bony abnormality. Severe degenerative arthritis. Reviewed by: Praveen Corona MD on 02/03/2024 1:57 PM PDT Approved by: Praveen Corona MD on 02/03/2024 1:57 PM PDT Station ID: [id number]
[2024-02-03 14:33] VITALS: O2SAT 100
[2024-02-03] MEDS: APIXABAN 5 MG TABLET PO STA (15:16)
[2024-02-03] MEDS: cephALEXin 250 MG CAPSULE PO STA (15:16)
[2024-02-03 15:49] VITALS: BP 151/75
--- NOTE | 2024-02-08 15:16 | ED Physician Documentation ---
ED Addendum - Addendum Addendum: 02/08/24 15:14 cx review called [facility] changed rx to levoflox 500mg po daily x 10d faxed to them at [phone]
== END 2024-02-03 16:13 | disposition home or self-care (01) ==
LOC: EDUNIT# → ED 11:16
DX: I82.442 Acute embolism and thrombosis of left tibial vein (principal); I82.432 Acute embolism and thrombosis of left popliteal vein; L03.116 Cellulitis of left lower limb; G20.A1 Parkinson's disease without dyskinesia, without mention of fluctuations; I10 Essential (primary) hypertension; E78.00 Pure hypercholesterolemia, unspecified; N40.0 Benign prostatic hyperplasia without lower urinary tract symptoms; Z79.01 Long term (current) use of anticoagulants; Z79.899 Other long term (current) drug therapy
CPT/HCPCS: 36415; 73564; 80053; 85025; 85610; 93971; 99283; 99284; A9270

== ENCOUNTER 2024-02-03 16:11 | Outpatient (CLI) | payer MEDICARE, OTHER | END 2024-02-03 23:59 | disposition home or self-care (01) | LOC: EMS 16:11 | PROVIDERS: ATTEND Physician Assistant | DX: R41.0 Disorientation, unspecified (principal) | CPT/HCPCS: A0425; A0428 ==